=== PATIENT | female | born 1995 | race American Indian/Alaskan Native ===

== ENCOUNTER 2019-08-10 23:22 | Emergency (ER) | payer BC ==
[2019-08-11 00:28] LABS: Basophils % (Auto) 0.2 % (0.0-1.8); Eosinophils % (Auto) 0.5 % (0.0-4.3); Hematocrit 39.8 % (30.3-42.9); Hemoglobin 13.2 gm/dl (10.1-14.3); Lymphocytes # (Auto) 2.2 K/mm3 (1.2-5.4); Lymphocytes % (Auto) 23.4 % (13.4-35.0); Mean Corpuscular HGB Conc 33 % (30-34); Mean Corpuscular Volume 83 fl (79-97); Monocytes # (Auto) 0.6 K/mm3 (0.0-0.8); Monocytes % (Auto) 6.5 % (0.0-7.3); Platelet Count 366 K/mm3 (140-440); Red Blood Count 4.78 M/mm3 (3.65-5.03); Red Cell Distribution Width 13.5 % (13.2-15.2)
[2019-08-11 01:21] LABS: Alanine Aminotransferase 12 units/L (7-56); Albumin 4.2 g/dL (3.9-5); BUN/Creatinine Ratio 21; Blood Urea Nitrogen 15 mg/dL (7-17); Calcium 9.5 mg/dL (8.4-10.2); Hemolysis Index 26
[2019-08-11 01:29] LABS: Bilirubin,Urine NEG (Negative); Blood,Urine LG (Negative); Color,Urine Yellow (Yellow); Mucus,Urine 1+ /HPF
[2019-08-11 01:32] LABS: RBC,Urine > 182.0 /HPF (0.0-6.0)
[2019-08-11 01:46] VITALS: BP 122/56
--- NOTE | 2019-08-11 02:20 | Emergency Department Report ---
ED Female HPI - General Chief complaint: Abdominal Pain Stated complaint: ABD PAIN Time Seen by Provider: 08/11/19 02:10 Source: patient Mode of arrival: Ambulatory Limitations: No Limitations - History of Present Illness Initial comments: 24-year-old -[place] Island[place] female presents to the emergency room for pelvic pain that started yesterday. Patient reports she was seen at [facility] and was sent to have an ultrasound. Patient had a negative test there. Patient denies any nausea vomiting she does admit to vaginal bleeding that has gone to 3-4 pads used today. Patient states is normally heavier. Patient states ibuprofen and Aleve has helped with her pain. MD Complaint: pelvic pain Onset/Timin -: days(s) Location: suprapubic Radiation: non-radiating Severity: severe Quality: cramping Consistency: intermittent Improves with: medication (Ibuprofen and Aleve) Worsens with: menstrual period Are you Now?: No Last Menstrual Period: 07/21/19 EDC: 04/26/20 Associated Symptoms: denies other symptoms - Related Data Previous Rx's Medication Instructions Recorded Last Taken Type Ibuprofen [Motrin 600 MG tab] 600 mg PO Q8H PRN #21 tablet 08/11/19 Unknown Rx Allergies Allergy/AdvReac Type Severity Reaction Status Date / Time No Known Allergies Allergy Verified 08/10/19 23:28 ED Review of Systems ROS: Stated complaint: ABD PAIN Other details as noted in HPI Comment: All other systems reviewed and negative ED Past Medical Hx - Past Medical History Previous Medical History?: No - Surgical History Past Surgical History?: No - Social History Smoking Status: Never Smoker Substance Use Type: None - Medications Home Medications: Home Medications Medication Instructions Recorded Confirmed Last Taken Type Ibuprofen [Motrin 600 MG tab] 600 mg PO Q8H PRN #21 tablet 08/11/19 Unknown Rx ED Physical Exam - General Limitations: No Limitations General appearance: alert, in no apparent distress - Head Head exam: Present: atraumatic, normocephalic - Eye Eye exam: Present: normal appearance - ENT ENT exam: Present: mucous membranes moist - GI/Abdominal GI/Abdominal exam: Present: soft, normal bowel sounds. Absent: distended, tenderness, guarding, rebound - Bi-manual exam: Present: normal bi-manual exam - Back Exam Back exam: Present: normal inspection, full ROM - Neurological Exam Neurological exam: Present: alert, oriented X3, normal gait - Psychiatric Psychiatric exam: Present: normal affect, normal mood - Skin Skin exam: Present: warm, dry, intact, normal color. Absent: rash ED Course Vital Signs 08/10/19 23:26 Temperature 98.6 F Pulse Rate 80 Respiratory 18 Rate Blood Pressure 122/56 O2 Sat by Pulse 100 Oximetry ED Medical Decision Making - Lab Data Result diagrams: 08/10/19 23:55 08/10/19 23:55 - Radiology Data Radiology results: report reviewed Ordering Physician: BRIT ETIENNE Date of Service: 08/11/19 Procedure(s): US transvaginal Accession Number(s): [id number] cc: BRIT ETIENNE Pelvic ultrasound. INDICATION: Severe pelvic pain Transabdominal and transvaginal imaging is performed. FINDINGS: The uterus measures 6.1 cm in length. Endometrial stripe measures 5 mm. There is a small amount of fluid in the cervical canal. The right ovary measures 2 cm and is unremarkable. The left ovary measures 3.3 cm. There is a 3.1 x 1.5 cm heterogeneous structure in the left adnexa which is separate from the ovary. This is of uncertain etiology. This could represent bowel. This could represent an inflamed fallopian tube. There is a 1 cm structure along the margin of the left ovary which may represent a complex ovarian cyst or hemorrhagic cyst. IMPRESSION: There is a 3 x 1.5 cm structure in the left adnexa separate from the left ovary which is of uncertain etiology. This could potentially be bowel. This could represent an inflamed fallopian tube. Signer Name: Sawyer Ware MD Signed: 08/11/2019 4:27 AM Workstation Name: [id number] Transcribed By: Dictated By: Sawyer Ware MD Electronically Authenticated By: Sawyer Ware MD Signed Date/Time: 08/11/19426 DD/ 3 TD/TT: - Medical Decision Making 24-year-old -[place] female presents to the emergency room for pelvic pain that started yesterday. Patient reports she was seen at [facility] and was sent to have an ultrasound. Patient had a negative test there. Patient denies any nausea vomiting she does admit to vaginal bleeding that has gone to 3-4 pads used today. Patient states is normally heavier. Patient states ibuprofen and Aleve has helped with her pain. Patient labs are stable. Discussed with patient she should follow-up with [facility]. I discussed with patient if she had a ruptured cyst from her ovary that treatment will be ibuprofen Critical care attestation.: If time is entered above; I have spent that time in minutes in the direct care of this critically ill patient, excluding procedure time. ED Disposition Clinical Impression: Dysmenorrhea Disposition: TO HOME OR SELFCARE Is pt being admited?: No Does the pt Need Aspirin: No Condition: Stable Instructions: Abdominal Pain (ED), Dysmenorrhea (ED) Additional Instructions: Please follow-up with an ENERGY ASSISTANT. You can take Tylenol or ibuprofen for pain management Prescriptions: Ibuprofen [Motrin 600 MG tab] 600 mg PO Q8H PRN #21 tablet PRN Reason: Pain Referrals: PRIMARY CAREMD [Primary Care Provider] - 3-5 Days [facility] [Provider Group] - 3-5 Days [facility] [Provider Group] - 3-5 Days Forms: Work/School Release Form(ED)
--- NOTE | 2019-08-11 04:31 | Ultrasound Report ---
Pelvic ultrasound. INDICATION: Severe pelvic pain Transabdominal and transvaginal imaging is performed. FINDINGS: The uterus measures 6.1 cm in length. Endometrial stripe measures 5 mm. There is a small am ount of fluid in the cervical canal. The right ovary measures 2 cm and is unremarkable. The left ovary measures 3.3 cm. There is a 3.1 x 1.5 cm heterogeneous structure in the left adnexa wh ich is separate from the ovary. This is of uncertain etiology. This could represent bowel. This could represent an inflamed fallopian tube. There is a 1 cm structure along the margin of the left ovary which may represent a complex ovarian cy st or hemorrhagic cyst. IMPRESSION: There is a 3 x 1.5 cm structure in the left adnexa separate from the left ovary which is of uncertain etiology. This could potentially be bowel. This could represent an inflamed fallopian tu be. Signer Name: Sawyer Ware MD Signed: 08/11/2019 4:27 AM Workstation Name: [id number]
== END 2019-08-11 05:53 | disposition home or self-care (01) ==
LOC: ED 23:22
DX: N94.6 Dysmenorrhea, unspecified (principal); Z79.899 Other long term (current) drug therapy
CPT/HCPCS: 36415; 76830; 76856; 80053; 81001; 84703; 85025

== ENCOUNTER 2020-06-26 00:11 | Outpatient (CLI) | payer BC ==
[2020-06-26 00:40] VITALS: BP 130/75
[2020-06-26] MEDS ORDERED: LACTATED RINGERS 1,000 ML IV ONE (00:47)
[2020-06-26 01:45] LABS: Bacteria,Urine 2+ /HPF (Negative); Bilirubin,Urine NEG (Negative); Blood,Urine NEG (Negative); Color,Urine Straw (Yellow); Protein,Urine <15 mg/dL mg/dL (Negative); RBC,Urine < 1.0 /HPF (0.0-6.0); Urobilinogen,Urine < 2.0 mg/dL (<2.0)
[2020-06-26] MEDS ORDERED: ACETAMINOPHEN 500 MG TAB PO ONE (02:00)
--- NOTE | 2020-06-26 03:51 | Ultrasound Report ---
US OB BPP wo non-stress, US OB limited INDICATION: wellbeing. TECHNIQUE: Transabdominal. COMPARISON: None available. FINDINGS: There is a single intrauterine . Heart Rate: 127 beats per minute. Position: cephalic. Amniotic Fluid Volume: normal Amniotic Fluid Index (RAUDEL) in cm (if calculated): 8.7. Biophysical Profile: breathing movements: 2 movements:2 posture and tone:2 Qualitative amniotic fluid volume: 2 IMPRESSION: 1. Amniotic fluid is normal. 2. Biophysical profile is 8 of 8. Signer Name: Star Izquierdo MD Signed: 06/26/2020 3:46 AM Workstation Name: [id number]
== END 2020-06-26 03:15 | disposition home or self-care (01) ==
LOC: TRG 00:11 → APU 00:21 → TRG 03:15
PROVIDERS: ATTEND Obstetrics & Gynecology
DX: O26.893 Other specified pregnancy related conditions, third trimester (principal); R10.30 Lower abdominal pain, unspecified; M54.5 Low back pain; R11.0 Nausea; Z3A.35 35 weeks gestation of pregnancy
CPT/HCPCS: 59025; 76815; 76819; 81001; 96360; J7120

== ENCOUNTER 2020-07-23 01:21 | Inpatient (IN) | payer BC ==
[2020-07-23] MEDS ORDERED: LACTATED RINGERS 1,000 ML ONE (01:59)
[2020-07-23] MEDS ORDERED: OXYTOCIN DRIP 30,000 MILLIUNITS/500 ML BAG IV ONE (01:59)
[2020-07-23] MEDS ORDERED: fentaNYL 100 MCG/2 ML INJ ONE (02:06)
[2020-07-23] MEDS ORDERED: fentaNYL 100 MCG/2 ML INJ IV PRN ×2 (02:14→02:54)
[2020-07-23] MEDS ORDERED: LACTATED RINGERS 1,000 ML IV SCH ×2 (02:15→03:00)
[2020-07-23 02:47] LABS: Hematocrit 40.6 % (30.3-42.9); Hemoglobin 13.4 gm/dl (10.1-14.3); Mean Corpuscular HGB Conc 33 % (30-34); Mean Corpuscular Volume 83 fl (79-97); Platelet Count 357 K/mm3 (140-440); Red Cell Distribution Width 16.4 % (13.2-15.2)
[2020-07-23] MEDS ORDERED: BUTORPHANOL 2 MG/1 ML INJ IV PRN ×2 (02:54)
[2020-07-23] MEDS ORDERED: ONDANSETRON 4 MG/2 ML INJ IV PRN ×3 (02:54→09:11)
[2020-07-23] MEDS ORDERED: LIDOCAINE (2%) 20 MG/1 ML VIAL 20 ML MDV INFILTRATI ONE (02:54)
[2020-07-23] MEDS ORDERED: LOPERAMIDE 2 MG CAP PO PRN (02:54)
[2020-07-23] MEDS ORDERED: OXYTOCIN 10 UNIT/1 ML INJ IM PRN (02:54)
[2020-07-23] MEDS ORDERED: METHYLERGONOVINE MALEATE 0.2 MG/ML VIAL IM PRN (02:54)
[2020-07-23] MEDS ORDERED: MINERAL OIL 30 ML ORAL LIQD PO PRN (02:54)
[2020-07-23] MEDS ORDERED: TERBUTALINE 1 MG/1 ML INJ SUB-Q PRN (02:54)
[2020-07-23] MEDS ORDERED: CARBOPROST TROMETHAMINE 250 MCG/1 ML INJ IM PRN (02:54)
[2020-07-23] MEDS ORDERED: ePHEDrine SULFATE 50 MG/1 ML INJ IV PRN (02:54)
[2020-07-23] MEDS ORDERED: OXYTOCIN DRIP 30 UNITS/500 ML BAG IV SCH ×3 (03:00→09:11)
[2020-07-23] MEDS ORDERED: ACETAMINOPHEN 500 MG TAB PO PRN (03:12)
--- NOTE | 2020-07-23 03:33 | History and Physical Report ---
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 Infection History Hx of STD: chlamydia HIV Risk Eval: no Genetic History Congenital Heart Defect: Mom: no Dad: no Devi Disease: Mom: no Dad: no Thalassemia Mom: no Dad: no Neural Tube Defect Mom: no Dad: no Down's Syndrome Mom: no Dad: no Mukesh-Sachs Mom: no Dad: no Sickle Cell Disease/Trait Mom: no Dad: yes Hemophilia Mom: no Dad: no Muscular Dystrophy Mom: no Dad: no Cystic Fibrosis Mom: no Dad: no Jennifer Chorea Mom: no Dad: no Mental Retardation Mom: no Dad: no Fragile X Mom: no Dad: no Other Genetic/Chromosomal Disorder Mom: no Dad: no Child w/other defect Mom: no Dad: no Enviromental Exposures Xray Exposure: no Medication, drug, or alcohol use since LMP: no Chemical/Other Exposure: no Exposure to Cat Liter: no Hx of Parvovirus (Fifth Disease): no Occupational Exposure to Children: none Active Medications (reviewed today): 07/14 1-20 MG-MCG ORAL TABLET (NORETHINDRONE ACET-ETHINYL EST) 1 po q day as directed Current Allergies (reviewed today): No known allergies Past History - Obstetrical History Expected Date of Delivery: 07/27/20 Actual Gestation: 39 Week(s) 3 Day(s) : 1 Medications and Allergies Allergies Allergy/AdvReac Type Severity Reaction Status Date / Time No Known Allergies Allergy Verified 08/10/19 23:28 Home Medications Medication Instructions Recorded Confirmed Last Taken Type Ferrous Sulfate [Iron 325 MG] 1 tab PO DAILY 07/23/20 07/23/20 1 Day Ago History ~07/22/20 Vitamin 1 tab PO DAILY 07/23/20 07/23/20 1 Day Ago History ~07/22/20 Active Meds: Active Medications Acetaminophen (Acetaminophen 500 Mg Tab) 1,000 mg PO Q6H PRN PRN Reason: Pain, Mild (1-3) Butorphanol Tartrate (Butorphanol 2 Mg/1 Ml Inj) 1 mg IV Q2H PRN PRN Reason: Pain, Moderate(4-6) LABOR PAIN Butorphanol Tartrate (Butorphanol 2 Mg/1 Ml Inj) 2 mg IV Q2H PRN PRN Reason: Pain , Severe (7-10) Carboprost Tromethamine (Carboprost Tromethamine 250 Mcg/1 Ml Inj) 250 mcg IM ONCE PRN PRN Reason: Uterine Bleeding Ephedrine Sulfate (Ephedrine Sulfate 50 Mg/1 Ml Inj) 10 mg IV Q2M PRN PRN Reason: Hypotension Fentanyl (Fentanyl 100 Mcg/2 Ml Inj) 100 mcg IV Q2H PRN PRN Reason: Pain,Severe (7-10) LABOR PAIN Oxytocin/Sodium Chloride (Pitocin/Ns 30 Unit/500ml) 30 units in 500 mls @ 2 mls/hr IV TITR JOSE DANIEL; Protocol Lactated Ringer's (Lactated Ringers) 1,000 mls @ 125 mls/hr IV DIRECT JOSE DANIEL Oxytocin/Sodium Chloride (Pitocin/Ns 30 Unit/500ml) 30 units in 500 mls @ 40 mls/hr IV TITR JOSE DANIEL; Protocol Loperamide HCl (Loperamide 2 Mg Cap) 2 mg PO ONCE PRN PRN Reason: give with Hemabate Methylergonovine Maleate (Methylergonovine Maleate 0.2 Mg/Ml Vial) 0.2 mg IM ONCE PRN PRN Reason: Uterine Bleeding Mineral Oil (Mineral Oil 30 Ml Oral Liqd) 30 ml PO QHS PRN PRN Reason: Constipation Ondansetron HCl (Ondansetron 4 Mg/2 Ml Inj) 4 mg IV Q8H PRN PRN Reason: Nausea And Vomiting Oxytocin (Oxytocin 10 Unit/1 Ml Inj) 10 unit IM ONCE PRN PRN Reason: Uterine Bleeding Terbutaline Sulfate (Terbutaline 1 Mg/1 Ml Inj) 0.25 mg SUB-Q ONCE PRN PRN Reason: Hyperstimulation/Hypertonicity - Vital Signs Vital signs: Vital Signs Temp Resp 99.1 F 20 07/23/20 01:39 07/23/20 01:39 Temp Pulse Resp BP Pulse Ox 98.2 F 98 H 15 127/60 98 07/23/20 02:28 07/23/20 03:06 07/23/20 02:28 07/23/20 02:28 07/23/20 03:06 - Physical Exam Breasts: Positive: deferred Cardiovascular: Regular rate Lungs: Positive: Normal air movement Abdomen: Positive: soft - Obstetrical FHR: category 2 Uterine Contraction Monitor Mode: External Results Result Diagrams: 07/23/20 01:50 Abnormal lab results 07/23/20 Range/Units 01:50 MCH 27 L (28-32) pg RDW 16.4 H (13.2-15.2) % All other labs normal. Assessment and Plan - Patient Problems (1) 39 weeks gestation of Current Visit: Yes Status: Acute (2) Active labor at term Current Visit: Yes Status: Acute
--- NOTE | 2020-07-23 03:45 | Progress Note ---
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 Infection History Hx of STD: chlamydia HIV Risk Eval: no Genetic History Congenital Heart Defect: Mom: no Dad: no Devi Disease: Mom: no Dad: no Thalassemia Mom: no Dad: no Neural Tube Defect Mom: no Dad: no Down's Syndrome Mom: no Dad: no Mukesh-Sachs Mom: no Dad: no Sickle Cell Disease/Trait Mom: no Dad: yes Hemophilia Mom: no Dad: no Muscular Dystrophy Mom: no Dad: no Cystic Fibrosis Mom: no Dad: no [place] Chorea Mom: no Dad: no Mental Retardation Mom: no Dad: no Fragile X Mom: no Dad: no Other Genetic/Chromosomal Disorder Mom: no Dad: no Child w/other defect Mom: no Dad: no Enviromental Exposures Xray Exposure: no Medication, drug, or alcohol use since LMP: no Chemical/Other Exposure: no Exposure to Cat Liter: no Hx of Parvovirus (Fifth Disease): no Occupational Exposure to Children: none Active Medications (reviewed today): JUNEL 07/14 1-20 MG-MCG ORAL TABLET (NORETHINDRONE ACET-ETHINYL EST) 1 po q day as directed Current Allergies (reviewed today): No known allergies Patient reports: new complaints (pressure) Objective - Vital Signs Vital Signs: Vital Signs - 12hr 07/23/20 07/23/20 07/23/20 01:39 02:28 02:36 Temperature 99.1 F 98.2 F Pulse Rate 79 84 Respiratory 20 15 Rate Blood Pressure 127/60 Blood Pressure 127/60 [Right] O2 Sat by Pulse 98 Oximetry 07/23/20 07/23/20 07/23/20 02:41 02:46 02:51 Temperature Pulse Rate 90 81 101 H Respiratory Rate Blood Pressure Blood Pressure [Right] O2 Sat by Pulse 99 98 100 Oximetry 07/23/20 07/23/20 07/23/20 02:56 03:01 03:06 Temperature Pulse Rate 81 88 98 H Respiratory Rate Blood Pressure Blood Pressure [Right] O2 Sat by Pulse 99 98 98 Oximetry 07/23/20 07/23/20 03:34 03:39 Temperature Pulse Rate 110 H 82 Respiratory Rate Blood Pressure 125/57 Blood Pressure [Right] O2 Sat by Pulse 99 100 Oximetry - Exam Breasts: deferred Cardiovascular: Regular rate Lungs: Normal air movement Abdomen: Present: soft Vulva: both: normal Uterus: Present: fundal height above umbilicus. Absent: tenderness FHR: category 1 Uterine Contraction Monitor Mode: External Cervical Dilatation: 9.5 Cervical Effacement Percentage: 100 station: 1+ Uterine Contraction Frequency (min): 3 Uterine Contraction Pattern: Regular Extremities: normal - Labs Labs: Abnormal Labs 07/23/20 01:50 MCH 27 L RDW 16.4 H Laboratory Results - last 24 hr 07/23/20 07/23/20 07/23/20 01:50 01:50 01:50 WBC 10.6 RBC 4.90 Hgb 13.4 Hct 40.6 MCV 83 MCH 27 L MCHC 33 RDW 16.4 H Plt Count 357 Syphilis IgG Antibody Nonreactive Blood Type O POSITIVE
[2020-07-23] MEDS ORDERED: SODIUM CHLORIDE 0.9% IRR 1,500 ML BOTTLE IR ONE (04:50)
[2020-07-23] MEDS ORDERED: WATER FOR IRRIG STERILE 1,500 ML BOTTLE IR ONE (04:50)
[2020-07-23] MEDS ORDERED: SUCCINYLCHOLINE CHLORIDE 200 MG/10 ML INJ MDV ONE (04:59)
[2020-07-23] MEDS ORDERED: LIDOCAINE MPF (2%) 20 MG/1 ML VIAL 5 ML ONE (04:59)
[2020-07-23] MEDS ORDERED: propofoL 200 MG/20 ML VIAL IV ONE (04:59)
[2020-07-23] MEDS ORDERED: ceFAZolin/STERILE WATER 2 GM/20 ML SYRINGE IV ONE (05:05)
[2020-07-23] MEDS ORDERED: ceFAZolin/Water 2 GM/20 ML 2 GM/20 ML SYRINGE IV ONE (05:06)
[2020-07-23] MEDS ORDERED: HYDROmorphone 1 MG/1 ML INJ ONE (05:09)
[2020-07-23] MEDS ORDERED: OXYTOCIN 10 UNIT/1 ML INJ ONE (05:09)
[2020-07-23] MEDS ORDERED: BUPIVACAINE/PF (0.5%) 5 MG/1 ML 30 ML VIAL INFILTRATI ONE (05:28)
[2020-07-23] MEDS ORDERED: dexAMETHasone 20 MG/5 ML VIAL ONE (05:28)
[2020-07-23] MEDS ORDERED: ONDANSETRON 4 MG/2 ML INJ ONE (05:28)
[2020-07-23] MEDS ORDERED: KETOROLAC 30 MG/1 ML INJ ONE (05:30)
[2020-07-23] MEDS ORDERED: SODIUM CHLORIDE 0.9% 100 ML ONE (05:48)
--- NOTE | 2020-07-23 06:06 | Operative Report ---
Operative Report Operative Report: Date of operation: 07/23/2020 Pre-operative diagnosis: 1. 39 weeks gestational age 2. Nonreassuring heart rate tracing 3. Failure to descend 4. BMI 33 kg/m Post-operative diagnosis: 1. 39 weeks gestational age 2. Nonreassuring heart rate tracing 3. Failure to descend 4. BMI 33 kg/m 5. Asynclitism Procedure name(s): Primary low transverse delivery Surgeon: Tasha Rodarte MD Animation Director: Liana Chow CST Anesthesia: General anesthesia EBL: 700 mL Urine output: 50 mL of clear urine out at the end of the procedure Fluids: 650 mL Findings: Liveborn male infant weight 7 Lbs. 9 oz. Apgars of 8 and 9 at one and 5 minutes Indications: This is a 25-year-old female 1 para 0 who presented in active labor. Complete and began pushing however heart tones decreased to the 70s/80s that did not respond to intrauterine resuscitative measures. When attempting to displace the head of the pelvis to restore heart tones to normal the cervix decreased back over the head still without recovery of heart tones. Decision was made to proceed with emergent . Once patient was placed on the operating table heart tones were documented to be 140sx2 however the decision was made to proceed with delivery. Patient desired general anesthesia. Procedure: Patient was taking to the operating room. General anesthesia was performed. Patient was then prepped and draped in the usual sterile fashion Timeout was performed. Once an appropriate level of anesthesia was noted, a Pfannenstiel incision was made and extended the fascia which was incised and extended lateral direction. The overlying fascia was sharply dissected away f rom the underlying rectus muscles in the superior inferior direction. The midline was entered bluntly. Bladder blade was placed. Vesicouterine fold was incised with blunt dissection bladder flap was created. A transverse incision was made in the lower uterine segment and extended superolateral direction with finger fractionation. Clear fluid was noted. Infant was delivered from the cephalic LOT position, caput present, with spontaneous cry and excellent tone. Mouth and nose bulb suctioned. Cord was doubly clamped and cut infant was given to the resuscitation team present. Placenta was delivered. The uterus was exteriorized and cleaned of any further placental tissue and products of conception. Uterine incision was approximated using 0 Vicryl in a running interlocking stitch. When hemostasis was noted the uterus was allowed back in the pelvic cavity. Pelvis was irrigated with warm normal saline. Surgicel was placed over the incision to ensure hemostasis. Once hemostasis was noted the rectus muscles were approximated using 0 Vicryl interrupted simple stitches 2. Once hemostasis was noted the fascia was approximated using 0 Vicryl simple running stitch. The incision was irrigated with warm saline the skin was approximated using 4-0 Vicryl on a Jason needle in a subcuticular manner. Counts were correct x3. Patient tolerated the procedure well, she was taken to recovery room in stable condition.
--- NOTE | 2020-07-23 06:29 | Anesthesia Day of Surgery ---
Anesthesia Day of Surgery - Day of Surgery Patient Examined: Yes Patient H&P Reviewed: Yes Patient is NPO: Yes Beta Blockers: No Cardiac Clearance: No Pulmonary Clearance: No Sung's Test: N/A
[2020-07-23] MEDS ORDERED: NALOXONE 0.4 MG/1 ML INJ IV PRN ×2 (06:30→09:11)
[2020-07-23] MEDS ORDERED: oxyCODONE /ACETAMINOPHEN 5-325MG TAB PO PRN (06:30)
--- NOTE | 2020-07-23 06:30 | Anesthesia Consultation ---
Anesthesia Consult and Med Hx Date of service: 07/23/20 - Airway Anesthetic Teeth Evaluation: Good ROM Head & Neck: Adequate Mental/Hyoid Distance: Adequate Mallampati Class: Class II Intubation Access Assessment: Probably Good - Pulmonary Exam CTA: Yes - Cardiac Exam Cardiac Exam: RRR - Pre-Operative Health Status ASA Pre-Surgery Classification: ASA2, Emergency Proposed Anesthetic Plan: General Nerve Block: TAP - Pulmonary Hx Smoking: No Hx Asthma: No COPD: No Hx Pneumonia: No Hx Sleep Apnea: No - Cardiovascular System Hx Hypertension: No Hx Heart Attack/AMI: No Hx Angina: No - Central Nervous System Hx Seizures: No Hx Psychiatric Problems: No - Gastrointestinal Hx Gastroesophageal Reflux Disease: No - Endocrine Hx Renal Disease: No Hx End Stage Renal Disease: No Hx Insulin Dependent Diabetes: No Hx Non-Insulin Dependent Diabetes: No Hx Hypothyroidism: No Hx Hyperthyroidism: No - Hematic Hx Anemia: No Hx Sickle Cell Disease: No - Other Systems Hx Alcohol Use: No
--- NOTE | 2020-07-23 06:30 | Progress Note ---
Regional Anesthesia Block - Regional Anesthesia Block Start Time: 05:55 Stop Time: 06:00 Performed By:: DANN BATES Procedure: Patient consented for TAP block for post surgical pain management. Patient identified, monitors placed, and time out performed. Mid axillary TAP identified bilaterally via ultrasound. Skin prepped bilaterally with [chlorhexidine] and [20g stimuplex] needle advanced to the TAP. 35ml [Marcaine 0.25% with 25mcg Pre cedex and Decadron 5mg] injected under ultrasound guidance on the [left] side. 35ml [Marcaine 0.25% with 25mcg Precedex and Decadron 5mg] injected under ultrasound guidance on the [right] side.
[2020-07-23] MEDS: fentaNYL 100 MCG/2 ML INJ IV PRN ×3 (06:47→07:08)
[2020-07-23] MEDS ORDERED: LANOLIN/ZINC/DIMETHICONE (LANSINOH) 7 GM TP PRN (09:11)
[2020-07-23] MEDS ORDERED: PROMETHAZINE 25 MG RECT SUPP PR PRN (09:11)
[2020-07-23] MEDS ORDERED: miSOPROStol 200 MCG TAB PR PRN (09:11)
[2020-07-23] MEDS ORDERED: MAGNESIUM HYDROXIDE (MOM) ORAL LIQD UDC PO PRN (09:11)
[2020-07-23] MEDS ORDERED: MORPHINE 4 MG/1 ML INJ IV PRN (09:11)
[2020-07-23] MEDS ORDERED: SENNOSIDES 8.6 MG TAB PO PRN (09:11)
[2020-07-23] MEDS ORDERED: MORPHINE 2 MG/1 ML INJ IV PRN (09:11)
[2020-07-23] MEDS ORDERED: D5W/LACTATED RINGERS 1,000 ML IV SCH (09:11)
[2020-07-23] MEDS ORDERED: WITCH HAZEL/ GLYCERIN PAD TP PRN (09:11)
--- NOTE | 2020-07-23 09:50 | Post Anesthesia Evaluation ---
- Post Anesthesia Evaluation Patient Participated: Yes Airway Patent: Yes Stable Respiratory Function: Yes Nausea/Vomiting: No Temp > 96.8F: Yes Pain Manageable: Yes Adequeate Hydration: Yes Anesthesia Complications: No Block Receding Appropriately: Yes Patient on Ventilator: No
[2020-07-23] MEDS: ceFAZolin/NS 1 GM/50 ML 1 GM/50 ML BAG IV SCH ×2 (11:35→18:48)
[2020-07-23] MEDS: KETOROLAC 30 MG/1 ML INJ IV SCH ×3 (11:35→23:01)
[2020-07-23] MEDS: ACETAMINOPHEN 325 MG TAB PO SCH ×3 (11:51→22:44)
[2020-07-23 17:53] LABS: Hematocrit 36.2 % (30.3-42.9); Hemoglobin 12.1 gm/dl (10.1-14.3)
[2020-07-24] MEDS ORDERED: IBUPROFEN 800 MG TAB PO PRN (03:19)
[2020-07-24] MEDS ORDERED: ACETAMINOPHEN 500 MG TAB PO SCH (03:20)
[2020-07-24] MEDS: ACETAMINOPHEN 325 MG TAB PO SCH (03:25)
[2020-07-24] MEDS: HYDROcodone/ACETAMINOPHEN 5-325 MG TAB PO PRN ×2 (04:16→10:08)
[2020-07-24] MEDS: KETOROLAC 30 MG/1 ML INJ IV SCH (05:27)
[2020-07-24] MEDS ORDERED: IBUPROFEN 600 MG TAB PO PRN (05:49)
[2020-07-24] MEDS ORDERED: oxyCODONE /ACETAMINOPHEN 5-325MG TAB PO PRN (05:49)
[2020-07-24] MEDS ORDERED: DIPHtheria,PERTUSSIS(ACELL),TETANUS VACCINE/PF 0.5 ML VIAL IM ONE (05:52)
[2020-07-24] MEDS ORDERED: AMMONIA INHALANT IH ONE (09:16)
--- NOTE | 2020-07-24 09:45 | Progress Note ---
Assessment and Plan A: 25 y.o. s/p primary under general anesthesia d/t non reassuring heart rate tracing, POD #1. Unwitnessed fainting spell in restroom. P: Start bolus of IV fluids. Stat CBC. Obtain orthostatic vital signs. Instructed patient not to get out of bed without assistance. Subjective - Subjective Date of service: 07/24/20 (Pt feeling faint) Principal diagnosis: Primary d/t intolerance to labor, POD #1 Patient reports: appetite normal, voiding normally, pain well controlled, nauseated, other (Pt "passed out" on the toilet. It was unwitnessed. ) : doing well Objective - Vital Signs Latest vital signs: Vital Signs Temp Pulse Resp BP BP Pulse Ox 07/24/20 08:00 97.6 F 100 H 18 119/66 100 07/24/20 04:16 18 07/24/20 04:03 97.9 F 87 18 113/51 99 07/24/20 00:54 97.5 F L 95 H 20 112/60 97 07/23/20 21:17 97.6 F 65 18 110/69 100 07/23/20 15:50 97.4 F L 76 18 118/64 96 07/23/20 12:14 98.0 F 83 18 122/69 97 Intake and Output 07/23/20 07/24/20 07/24/20 22:59 06:59 14:59 Intake Total 200 200 Output Total 1150 600 Balance -950 -400 Intake: Oral 200 200 Output: Urine 1150 600 Indwelling Catheter 650 Uretheral (Ozuna) 500 Void 600 Other: Total, Intake Amount 200 200 Total, Output Amount 500 600 # Voids Void 300 - Exam Narrative Exam: [place] emergency light going off when coming out of another patient's room and was told that "room 2135 passed out." Upon entering room, found patient sitting on toilet with RN and PCT next to her. Pt was alert and oriented. Assisted RN and PCT with getting patient back to bed. Pt states that she became nauseated, started to feel hot, and then passed out. When she "came to", she called for the [facility] to call for help. This was an unwitnessed fainting spell. Initial vital signs were stable: 108/56, 88, 100% on room air. Fundus firm with minimal bleeding noted. Spoke with Dr. Paredes and updated her on pt status. Orthostatics and stat CBC. Pt instructed to not get out of bed without assistance. RN aware of orders for stat CBC and orthostatics. Cardiovascular: Present: Regular rate, Normal S1, Normal S2 Lungs: Present: Clear to auscultation Abdomen: Present: normal appearance, soft Vulva: both: normal Uterus: Present: normal, firm Extremities: Present: normal Deep Tendon Reflex Grade: Normal +2 Incision: Present: intact (No drainage on dressing noted. ), dressed
[2020-07-24] MEDS ORDERED: LACTATED RINGERS 1,000 ML IV ONE (10:01)
[2020-07-24] MEDS ORDERED: ONDANSETRON 4 MG/2 ML INJ IV ONE (10:05)
[2020-07-24] MEDS: SIMETHICONE 80 MG CHEW TAB PO PRN ×2 (10:08→18:07)
[2020-07-24 11:02] LABS: Basophils % (Auto) 0.3 % (0.0-1.8); Eosinophils # (Auto) 0.1 K/mm3 (0.0-0.4); Eosinophils % (Auto) 0.5 % (0.0-4.3); Hematocrit 33.3 % (30.3-42.9); Hemoglobin 11.1 gm/dl (10.1-14.3); Lymphocytes # (Auto) 1.9 K/mm3 (1.2-5.4); Lymphocytes % (Auto) 15.9 % (13.4-35.0); Mean Corpuscular HGB Conc 33 % (30-34); Mean Corpuscular Volume 84 fl (79-97); Monocytes # (Auto) 0.8 K/mm3 (0.0-0.8); Monocytes % (Auto) 6.9 % (0.0-7.3); Platelet Count 277 K/mm3 (140-440); Red Blood Count 3.96 M/mm3 (3.65-5.03); Red Cell Distribution Width 16.6 % (13.2-15.2)
[2020-07-24] MEDS: IBUPROFEN 800 MG TAB PO PRN ×2 (12:13→18:06)
[2020-07-25] MEDS: HYDROcodone/ACETAMINOPHEN 5-325 MG TAB PO PRN ×2 (00:20→09:47)
[2020-07-25] MEDS: IBUPROFEN 800 MG TAB PO PRN ×2 (05:50→15:22)
--- NOTE | 2020-07-25 07:58 | Event Note ---
Date: 07/25/20 (Pt states that she has not walked by herself since yesterday) Pt is s/p unwitnessed fainting spell on the morning of 07/24. Labs and orthostatic vital signs that were completed were WNL. Pt has a desire to go home today. We discussed that patient needs to get up and walk this AM and not feel faint and dizzy before going home. Encouraged ambulation. Pt verbalized understanding. Spoke with RN taking care of patient and we discussed walking her in the hallway before pt can be discharged home and to let provider know if patient is unable to walk without feeling dizzy or faint. Pt to be assisted with walking this AM. Will follow up in the early afternoon regarding walking.
[2020-07-25] MEDS ORDERED: medroxyPROGESTERone ACETATE 150 MG/ML SYRINGE IM ONE (10:00)
--- NOTE | 2020-07-25 12:13 | Consultation ---
History of Present Illness Consult date: 07/25/20 Consult reason: syncope History of present illness: Patient is 25F with no prior cardiac history who underwent 07/23/20 and delivered healthy boy. She had episode of passing out on 07/24 for which cardiology is consulted. Patient reports that she had finished urinating and became hot/flushed and dizzy as she stood up. She then passed out. She called for help as she woke up and then had to lie down in bed as she was worn out. She denies any CP, SOB, or palpitations. She has never had any prior syncope. She currently feels well. Medications and Allergies Allergies Allergy/AdvReac Type Severity Reaction Status Date / Time No Known Allergies Allergy Verified 08/10/19 23:28 Home Medications Medication Instructions Recorded Confirmed Last Taken Type Ferrous Sulfate [Iron 325 MG] 1 tab PO DAILY 07/23/20 07/23/20 1 Day Ago History ~07/22/20 Ibuprofen [Motrin 800 MG tab] 800 mg PO TID PRN #30 tablet 07/23/20 Unknown Rx Lidocain2.5%/Prilocai2.5% [Emla] 5 gm TP ONCE #1 tube 07/23/20 Unknown Rx Vitamin 1 tab PO DAILY 07/23/20 07/23/20 1 Day Ago History ~07/22/20 oxyCODONE /ACETAMINOPHEN [Percocet 1 - 2 tab PO Q6HR PRN #14 tablet 07/23/20 Unknown Rx 5/325 mg] Active Meds: Active Medications Hydrocodone Bitart/Acetaminophen (Hydrocodone/Acetaminophen 5-325 Mg Tab) 1 each PO Q6H PRN PRN Reason: Pain, Mild (1-3) Last Admin: 07/25/20 09:47 Dose: 1 each Documented by: Carboprost Tromethamine (Carboprost Tromethamine 250 Mcg/1 Ml Inj) 250 mcg IM ONCE PRN PRN Reason: Uterine Bleeding Dextrose/Lactated Ringer's (D5lr) 1,000 mls @ 125 mls/hr IV DIRECT JOSE DANIEL Oxytocin/Sodium Chloride (Pitocin/Ns 30 Unit/500ml) 30 units in 500 mls @ 40 mls/hr IV TITR JOSE DANIEL; Protocol Ibuprofen (Ibuprofen 800 Mg Tab) 800 mg PO Q8H PRN PRN Reason: Pain, Mild (1-3) Last Admin: 07/25/20 05:50 Dose: 800 mg Documented by: Loperamide HCl (Loperamide 2 Mg Cap) 2 mg PO ONCE PRN PRN Reason: give with Hemabate Magnesium Hydroxide (Magnesium Hydroxide (Mom) Oral Liqd Udc) 30 ml PO QHS PRN PRN Reason: Constip Unrelieved By Senna Methylergonovine Maleate (Methylergonovine Maleate 0.2 Mg/Ml Vial) 0.2 mg IM ONCE PRN PRN Reason: Uterine Bleeding Misoprostol (Misoprostol 200 Mcg Tab) 800 mcg KS PRN PRN PRN Reason: uterine bleeding Morphine Sulfate (Morphine 2 Mg/1 Ml Inj) 2 mg IV Q4H PRN PRN Reason: Pain, Moderate (4-6) Morphine Sulfate (Morphine 4 Mg/1 Ml Inj) 4 mg IV Q4H PRN PRN Reason: Pain , Severe (7-10) Multi-Ingredient Ointment (Lanolin/Zinc/Dimethicone (Lansinoh) 7 Gm) 1 applic TP PRN PRN PRN Reason: dryness/cracking Naloxone HCl (Naloxone 0.4 Mg/1 Ml Inj) 0.1 mg IV Q2MIN PRN PRN Reason: Res Rate </= 8 or 02 SAT < 92% Naloxone HCl (Naloxone 0.4 Mg/1 Ml Inj) 0.1 mg IV Q2MIN PRN PRN Reason: Res Rate </= 8 or 02 SAT < 92% Ondansetron HCl (Ondansetron 4 Mg/2 Ml Inj) 4 mg IV Q8H PRN PRN Reason: Nausea And Vomiting Oxycodone/Acetaminophen (Oxycodone /Acetaminophen 5-325mg Tab) 2 tab PO Q6H PRN PRN Reason: Pain, Moderate (4-6) Promethazine HCl (Promethazine 25 Mg Rect Supp) 25 mg KS Q6H PRN PRN Reason: N/V IF NPO AND NO IV ACCESS Senna (Sennosides 8.6 Mg Tab) 17.2 mg PO QHS PRN PRN Reason: Constipation Simethicone (Simethicone 80 Mg Chew Tab) 80 mg PO Q6H PRN PRN Reason: Gas pain Last Admin: 07/24/20 18:07 Dose: 80 mg Documented by: Sodium Chloride (Sodium Chloride 0.9% 10 Ml Flush Syringe) 10 ml IV PRN NR Stop: 07/27/20 09:10 Witch Allison/Glycerin (Witch Allison/ Glycerin Pad) 1 each TP PRN PRN PRN Reason: Hemorrhoids/cleansing/soothing Review of Systems All systems: negative Cardiovascular: no chest pain Respiratory: no shortness of breath Neurological: syncope Physical Examination Vital Signs Temp Resp 99.1 F 20 07/23/20 01:39 07/23/20 01:39 General appearance: no acute distress HEENT: Positive: PERRL Neck: Positive: neck supple, trachea midline Cardiac: Positive: Reg Rate and Rhythm Lungs: Positive: Normal Exam, clear to auscultation, Normal Breath Sounds Neuro: Positive: Grossly Intact Abdomen: Positive: Soft Skin: Positive: Clear Musculoskeletal: Normal Range of Motion Extremities: Present: normal Results 07/24/20 10:06 - EKG Interpretation EKG shows: sinus rhythm Assessment and Plan #Syncope, likely vasovagal #Post- female -Suspect vasovagal syncope per history. Orthostatics negative. EKG shows SR without pre-excitation or conduction abnormality; patient has not been on telemetry. Recommend increased hydration (up to 3L/day), wearing compression stockings / tight fitting clothing, and counterpressure maneuvers. No driving for next 1 month. She may be discharged from cardiac stand point and follow up as out-patient.
--- NOTE | 2020-07-25 13:39 | Discharge Summary ---
Providers - Providers Date of Admission: 07/23/20 02:54 Date of discharge: 07/25/20 (Pt desires to go home.) Attending physician: MARLEN DELUNA 07/23/20 09:11 Consult to [facility] Cutter [CONS] Timed Reason For Exam: 07/25/20 10:31 Consult to Cardiology [CONS] Urgent Consulting Provider: KRISTINA WISDOM Reason For Exam: Syncopal episode, tachycardia, abnormal EKG Primary care physician: MARLEN DELUNA Hospitalization Reason for admission: active labor Delivery: Procedure: primary low transverse Episiotomy: none Laceration: none Incision: normal, dry, intact, other (Steri strips intact with no s/sx of infection and no drainage noted. ) complications: other ( Unwitnessed syncopal episode. Cardiology was consulted. Cleared by cardiology to be discharged home. ) Discharge diagnosis: IUP at term delivered [place] baby: male Pertinent studies: Pt had unwitnessed syncopal episode on 07/24. She became dizzy, nauseated, and "overheated". Orthostatics and labs were obtained and were WNL. This AM she was noted to have some tachycardia so an EKG was ordered and cardiology consult was placed. Pt was cleared by cardiology for discharge home. Pt has been able to walk the hallway without further syncopal episodes. She denies feeling lightheaded, dizzy, short of breath. We discussed that if she has any of these symptoms at home to call the contact lens blocker provider and go to the ER to be seen. Pt verbalized understanding of these instructions. Hospital course: S: Pt doing well. Ambulating, voiding, and passing flatus okay. BC: Depo. O: VSS. Fundus firm, minimal bleeding noted. H/H 11.1/33.3. Incision: steri- strips intact, no s/sx of infection, no drainage noted. Denies feeling dizzy, lightheaded, short of breath, chest pain. A: 25 y.o. s/p primary , unwitnessed syncopal episode, now in stable condition and can be discharged home. Cleared from an OB standpoint and cleared by cardiology to be discharged home. P: Discharge home with instructions. To schedule an incision check in the office in 1 week. To schedule son's circumcision in the office in 1 week. Condition at discharge: Good Disposition: DC-[id number] TO HOME OR SELFCARE Plan - Discharge Medications Prescriptions: Lidocain2.5%/Prilocai2.5% [Emla] 5 gm TP ONCE #1 tube Ibuprofen [Motrin 800 MG tab] 800 mg PO TID PRN #30 tablet PRN Reason: Pain oxyCODONE /ACETAMINOPHEN [Percocet 5/325 mg] 1 - 2 tab PO Q6HR PRN #14 tablet PRN Reason: Pain - Provider Discharge Summary Activity: routine, no sex for 6 weeks, no heavy lifting 4 weeks, no strenuous exercise Diet: routine Instructions: routine Additional instructions: [] Smoking cessation referral if applicable(refer to patient education folder for contact #) [] Refer to [facility]'s [facility] Booklet Call your doctor immediately for: * Fever > 100.5 * Heavy vaginal bleeding ( >1 pad per hour) * Severe persistent headache * Shortness of breath * Reddened, hot, painful area to leg or breast * Drainage or odor from incision. * Keep incision clean and dry at all times and follow doctor's instructions regarding bathing/showering Congratulations on you baby boy! Please schedule an incision check in the office in 1 week. Please schedule your son's circumcision appointment in in the office in 1 week. You have been prescribed EMLA cream. Please do not use this cream at home, but bring it with you to your son's circumcision appointment. If you feel dizzy, lightheaded, feel like you can't catch your breath, or have chest pain, please call the contact lens blocker provider and go the the ER for an evaluation. Should you have any questions or concerns after discharge, please do not hesitate to call the office at [phone]. - Follow up plan Follow up: MARLEN DELUNA MD [Primary Care Provider] - 7 Days
[2020-07-25 18:11] VITALS: BP 114/69
== END 2020-07-25 16:36 | disposition home or self-care (01) | DRG 787 ==
LOC: APU 01:21 → TRG 01:21 → LD 02:54 → OB 08:35
PROVIDERS: ADMIT Obstetrics & Gynecology; ATTEND Obstetrics & Gynecology
PROC: 10D00Z1 Extraction of Products of Conception, Low, Open Approach (ICD-10-PCS; principal; 2020-07-23)
PROC: 3E0T3BZ Introduction of Anesthetic Agent into Peripheral Nerves and Plexi, Percutaneous Approach (ICD-10-PCS; 2020-07-23)
DX: O76 Abnormality in fetal heart rate and rhythm complicating labor and delivery (principal); O99.354 Diseases of the nervous system complicating childbirth; Z37.0 Single live birth; Z3A.39 39 weeks gestation of pregnancy; Z79.899 Other long term (current) drug therapy; R55 Syncope and collapse; Z20.822 Contact with and (suspected) exposure to COVID-19
CPT/HCPCS: 36415; 59025; 76815; 76819; 81001; 85014; 85018; 85025; 85027; 86592; 86850; 86900; 86901; 93005; 96360; 96361; G0378; J0330; J0690; J1050; J1100; J1170; J1885; J2405; J2590; J2704; J3010; J7120; Q0177; U0003